=== PATIENT | female | born 1990 | race Caucasian/White ===

== ENCOUNTER 2017-08-06 18:09 | Emergency (ER) | payer OTHER ==
[2017-08-06] MEDS: ONDANSETRON (ODT) 4 MG TAB ODT (20:53)
[2017-08-06] MEDS: FAMOTIDINE 20 MG TAB PO (20:53)
[2017-08-06] MEDS: BELLADONNA/PHENOBARBITAL TAB PO (20:53)
[2017-08-06] MEDS: LIDOCAINE/MYLANTA 40 ML BTL PO (20:53)
[2017-08-06 21:13] LABS: ADD MAN DIFF? NO
[2017-08-06 21:14] LABS: BASOPHIL # 0.1 10^3/ul (0.0-0.1); BASOPHILS % 0.6 % (0.0-2.0); EOSINOPHILS # 0.9 10^3/ul (0.0-0.5); EOSINOPHILS % 6.2 % (0.0-7.0); HEMATOCRIT 40.4 % (37.0-47.0); HEMOGLOBIN 13.2 g/dl (12.0-16.0); LYMPHOCYTES # 3.4 10^3/ul (0.8-2.9); LYMPHOCYTES % 23.3 % (15.0-51.0); MEAN CORPUSCULAR HEMOGLOBIN 26.8 pg (29.0-33.0); MEAN CORPUSCULAR HGB CONC 32.7 g/dl (32.0-37.0); MEAN CORPUSCULAR VOLUME 82.1 fl (82.0-101.0); MEAN PLATELET VOLUME 9.2 fl (7.4-10.4); MONOCYTE # 1.1 10^3/ul (0.3-0.9); MONOCYTES % 7.5 % (0.0-11.0); NEUTROPHILS % 62.1 % (39.0-77.0); PLATELET COUNT 303 10^3/UL (140-415); RED BLOOD COUNT 4.92 10^6/ul (4.20-5.40)
[2017-08-06 21:14] LABS: WHITE BLOOD COUNT 14.5 10^3/ul (4.8-10.8)
[2017-08-06 21:30] LABS: ADD UMIC YES; UR ASCORBIC ACID NEGATIVE (NEGATIVE); UR BACTERIA FEW /HPF (NONE SEEN); UR BILIRUBIN (Dip) NEGATIVE (NEGATIVE); UR BLOOD (Dip) NEGATIVE (NEGATIVE); UR CLARITY SLIGHTLY CLOUDY (CLEAR); UR COLOR YELLOW (YELLOW); UR GLUCOSE (Dip) NEGATIVE (NEGATIVE); UR KETONES (Dip) NEGATIVE (NEGATIVE); UR LEUKOCYTE ESTERASE (Dip) NEGATIVE Leu/ul (NEGATIVE); UR MUCUS MANY /HPF (NONE SEEN); UR NITRITE (Dip) NEGATIVE (NEGATIVE); UR RBC 7 /HPF (0-5); UR SPECIFIC GRAVITY (Dip) 1.027 (1.003-1.030); UR SQUAMOUS EPITHELIAL CELL FEW /HPF (FEW); UR TOTAL PROTEIN (Dip) 1+ mg/dl (NEGATIVE); UR UROBILINOGEN (Dip) 1+ mg/dL (NEGATIVE); UR WBC 8 /HPF (0-5)
[2017-08-06 21:36] LABS: ALANINE AMINOTRANSFERASE 29 IU/L (13-69); ALBUMIN 4.4 g/dl (3.3-4.9); ALBUMIN/GLOBULIN RATIO 1.29; ALKALINE PHOSPHATASE 70 IU/L (42-121); ANION GAP 18 (8-16); ASPARTATE AMINO TRANSFERASE 19 IU/L (15-46); BILIRUBIN,INDIRECT 0.3 mg/dl (0-1.1); BILIRUBIN,TOTAL 0.3 mg/dl (0.2-1.3); BLOOD UREA NITROGEN 8 mg/dl (7-20); CALCIUM 8.8 mg/dl (8.4-10.2); CARBON DIOXIDE 25 mmol/L (21-31); CHLORIDE 101 mmol/L (97-110); CREATININE 0.68 mg/dl (0.44-1.00); GLUCOSE 93 mg/dl (70-220); LIPASE 41 U/L (23-300); SODIUM 140 mmol/L (135-144); TOTAL PROTEIN 7.8 g/dl (6.1-8.1)
== END 2017-08-07 00:07 | disposition home or self-care (01) ==
LOC: FTE 08-07 00:07
DX: K21.9 Gastro-esophageal reflux disease without esophagitis (principal); J45.909 Unspecified asthma, uncomplicated
CPT/HCPCS: 36415; 74176; 76705; 80053; 81001; 83690; 85025; 99285-25

== ENCOUNTER 2017-09-04 11:02 | Emergency (ER) | payer OTHER | END 2017-09-04 13:20 | disposition home or self-care (01) | LOC: E/R 13:20 | DX: J06.9 Acute upper respiratory infection, unspecified (principal); J45.909 Unspecified asthma, uncomplicated | CPT/HCPCS: 99283; Z7502 ==

== ENCOUNTER 2018-07-05 12:59 | Emergency (ER) | payer OTHER | END 2018-07-05 15:50 | disposition home or self-care (01) | LOC: FTE 12:59 | DX: O99.89 Other specified diseases and conditions complicating pregnancy, childbirth and the puerperium (principal); M25.511 Pain in right shoulder; O99.511 Diseases of the respiratory system complicating pregnancy, first trimester; J45.909 Unspecified asthma, uncomplicated; Z3A.13 13 weeks gestation of pregnancy | CPT/HCPCS: 76805; 99284-25 ==

== ENCOUNTER 2018-07-14 21:45 | Emergency (ER) | payer OTHER ==
[2018-07-14] MEDS: SOD CHLORIDE 0.9% 1,000 ML IV (22:02)
[2018-07-14] MEDS: METHYLPREDNISOLONE 125 MG INJ IV (22:02)
[2018-07-14] MEDS: IPRATROPIUM (NEB) 0.5 MG/2.5 ML AMP INH (22:06)
[2018-07-14] MEDS: LEVALBUTEROL (NEB) 1.25 MG/0.5 ML AMP INH (22:06)
== END 2018-07-14 23:20 | disposition home or self-care (01) ==
LOC: E/R 21:45
DX: J45.901 Unspecified asthma with (acute) exacerbation (principal)
CPT/HCPCS: 94644; 96374; 99291-25

== ENCOUNTER 2018-12-14 15:32 | Outpatient (CLI) | payer OTHER | END 2018-12-14 17:30 | disposition home or self-care (01) | LOC: OBT 15:32 → L-D 15:40 → OBT 17:30 | DX: O36.5930 Maternal care for other known or suspected poor fetal growth, third trimester, not applicable or unspecified (principal); Z3A.36 36 weeks gestation of pregnancy | CPT/HCPCS: 76815; 76818 ==

== ENCOUNTER 2018-12-30 15:10 | Inpatient (IN) | payer OTHER ==
[~2018-12-30 15:10] MED LIST: EPHEDrine 25 MG/5 ML SYG; OXYTOCIN 30 UNITS/LR 500 ML BAG IV; PHENYLephrine (100 MCG/ML) 10ML SYG
[2018-12-30] MEDS ORDERED: CARBOPROST 250 MCG INJ IM (15:30)
[2018-12-30] MEDS ORDERED: METHYLERGONOVINE 0.2 MG INJ IM (15:30)
[2018-12-30] MEDS ORDERED: OXYTOCIN 30 UNITS/LR 500 ML IV (15:30)
[2018-12-30] MEDS ORDERED: MISOPROSTOL 200 MCG TAB PR (15:30)
[2018-12-30 16:08] LABS: ADD MAN DIFF? NO
[2018-12-30 16:11] LABS: WHITE BLOOD COUNT 12.7 10^3/ul (4.8-10.8)
[2018-12-30 16:11] LABS: BASOPHIL # 0.1 10^3/ul (0.0-0.1); BASOPHILS % 0.6 % (0.0-2.0); EOSINOPHILS # 0.8 10^3/ul (0.0-0.5); EOSINOPHILS % 6.1 % (0.0-7.0); HEMATOCRIT 36.3 % (37.0-47.0); HEMOGLOBIN 11.7 g/dl (12.0-16.0); LYMPHOCYTES % 15.6 % (15.0-51.0); MEAN CORPUSCULAR HGB CONC 32.2 g/dl (32.0-37.0); MEAN CORPUSCULAR VOLUME 80.7 fl (82.0-101.0); MEAN PLATELET VOLUME 10.4 fl (7.4-10.4); MONOCYTES % 7.8 % (0.0-11.0); NEUTROPHIL # 8.8 10^3/ul (1.6-7.5); NEUTROPHILS % 69.4 % (39.0-77.0); PLATELET COUNT 197 10^3/UL (140-415); RED CELL DISTRIBUTION WIDTH 12.8 % (11.5-14.5)
[2018-12-30] MEDS: LACTATED RINGER'S 1,000 ML IV ×2 (16:17→18:05)
[2018-12-30 16:35] LABS: INR 0.91; PROTIME 12.4 Sec (11.9-14.9)
[2018-12-30 16:36] LABS: PARTIAL THROMBOPLASTIN TIME 25.8 Sec (23.0-35.0)
[2018-12-30 17:03] LABS: HEPATITIS B SURFACE ANTIGEN NEGATIVE (NEGATIVE)
[2018-12-30] MEDS ORDERED: morphine SULFATE/PF (10 MG/10 ML) INJ (18:43)
[2018-12-30] MEDS ORDERED: ALBUTEROL 0.083% (NEB) 2.5 MG/3 ML AMP HHN (19:00)
[2018-12-30] MEDS ORDERED: ONDANSETRON 4 MG INJ IV (19:00)
[2018-12-30] MEDS ORDERED: METOCLOPRAMIDE 10 MG INJ IV (19:00)
[2018-12-30] MEDS ORDERED: NALOXONE (0.4 MG/ML) INJ IV (19:00)
[2018-12-30] MEDS ORDERED: FENTAnyl 50 MCG/ML VIAL IV ×3 (19:00)
[2018-12-30] MEDS ORDERED: DIPHENHYDRAMINE 50 MG INJ IV (19:00)
[2018-12-30] MEDS ORDERED: HYDROmorphONE 1 MG/5 ML IV SYRINGE IV ×2 (19:00)
[2018-12-30] MEDS: CEFAZOLIN 2 GM/50 ML (PMX) 50 ML IVPB (20:57)
[2018-12-30] MEDS: HYDROmorphONE 1 MG/5 ML IV SYRINGE IV (21:14)
[2018-12-30] MEDS: OXYTOCIN 30 UNITS/LR 500 ML IV (21:21)
[2018-12-31] MEDS ORDERED: DIPHENHYDRAMINE 50 MG INJ IV ×2 (01:30)
[2018-12-31] MEDS ORDERED: MISOPROSTOL 200 MCG TAB PR (01:30)
[2018-12-31] MEDS ORDERED: FENTAnyl 50 MCG/ML VIAL IV ×2 (01:30)
[2018-12-31] MEDS ORDERED: ONDANSETRON 4 MG INJ IV ×3 (01:30)
[2018-12-31] MEDS ORDERED: KETOROLAC 30 MG INJ IV (01:30)
[2018-12-31] MEDS ORDERED: CARBOPROST 250 MCG INJ IM (01:30)
[2018-12-31] MEDS ORDERED: METHYLERGONOVINE 0.2 MG INJ IM (01:30)
[2018-12-31] MEDS ORDERED: ZOLPIDEM 5 MG TAB PO (01:30)
[2018-12-31] MEDS ORDERED: NALOXONE (0.4 MG/ML) INJ IV (01:30)
[2018-12-31] MEDS ORDERED: ALBUTEROL 0.083% (NEB) 2.5 MG/3 ML AMP HHN (01:30)
[2018-12-31] MEDS ORDERED: METOCLOPRAMIDE 10 MG INJ IV (01:30)
[2018-12-31] MEDS ORDERED: HYDROmorphONE 0.5 MG/0.5 ML SYG IV ×2 (01:30)
[2018-12-31] MEDS ORDERED: HYDROmorphONE 1 MG/5 ML IV SYRINGE IV ×3 (01:30)
[2018-12-31] MEDS: OXYTOCIN 30 UNITS/LR 500 ML IV (01:43)
[2018-12-31] MEDS: DIPHENHYDRAMINE 50 MG INJ IV (01:44)
[2018-12-31] MEDS: ALBUTEROL HFA 8 GM INHALER INH ×2 (02:42→14:34)
[2018-12-31] MEDS: LACTATED RINGER'S 1,000 ML IV (06:08)
[2018-12-31] MEDS: KETOROLAC 30 MG INJ IV ×2 (06:14→14:26)
[2018-12-31] MEDS: LANOLIN HPA 1 PKT TOP (06:59)
[2018-12-31 08:38] LABS: ADD MAN DIFF? NO
[2018-12-31 08:49] LABS: BASOPHIL # 0.1 10^3/ul (0.0-0.1); BASOPHILS % 0.3 % (0.0-2.0); EOSINOPHILS # 0.5 10^3/ul (0.0-0.5); HEMATOCRIT 31.1 % (37.0-47.0); HEMOGLOBIN 10.2 g/dl (12.0-16.0); LYMPHOCYTES # 1.9 10^3/ul (0.8-2.9); LYMPHOCYTES % 11.3 % (15.0-51.0); MEAN CORPUSCULAR HEMOGLOBIN 26.8 pg (29.0-33.0); MEAN CORPUSCULAR HGB CONC 32.8 g/dl (32.0-37.0); MEAN CORPUSCULAR VOLUME 81.6 fl (82.0-101.0); MEAN PLATELET VOLUME 10.8 fl (7.4-10.4); MONOCYTE # 1.4 10^3/ul (0.3-0.9); MONOCYTES % 8.6 % (0.0-11.0); NEUTROPHIL # 12.8 10^3/ul (1.6-7.5); NEUTROPHILS % 76.4 % (39.0-77.0); PLATELET COUNT 161 10^3/UL (140-415); RED BLOOD COUNT 3.81 10^6/ul (4.20-5.40); RED CELL DISTRIBUTION WIDTH 12.8 % (11.5-14.5)
[2018-12-31 08:49] LABS: WHITE BLOOD COUNT 16.7 10^3/ul (4.8-10.8)
[2018-12-31] MEDS: SENNA/DOCUSATE NA (8.6MG/50MG) TAB PO ×2 (11:25→21:26)
[2018-12-31 16:55] LABS: RAPID PLASMA REAGIN NONREACTIVE (NR)
[2018-12-31] MEDS: IBUPROFEN 600 MG TAB PO ×2 (18:00→23:43)
[2018-12-31] MEDS ORDERED: OXYCODONE/ACETAMINOPHEN (5/325) TAB PO (19:00)
[2018-12-31] MEDS: OXYCODONE/ACETAMINOPHEN (5/325) TAB PO (21:26)
[2019-01-01] MEDS: IBUPROFEN 600 MG TAB PO ×4 (05:41→23:40)
[2019-01-01] MEDS: ALBUTEROL HFA 8 GM INHALER INH ×3 (05:46→21:31)
[2019-01-01 08:42] LABS: ADD MAN DIFF? NO
[2019-01-01 08:54] LABS: WHITE BLOOD COUNT 15.1 10^3/ul (4.8-10.8)
[2019-01-01 08:54] LABS: BASOPHILS % 0.3 % (0.0-2.0); EOSINOPHILS # 0.9 10^3/ul (0.0-0.5); EOSINOPHILS % 5.9 % (0.0-7.0); HEMATOCRIT 27.2 % (37.0-47.0); HEMOGLOBIN 8.8 g/dl (12.0-16.0); LYMPHOCYTES # 2.1 10^3/ul (0.8-2.9); LYMPHOCYTES % 13.8 % (15.0-51.0); MEAN CORPUSCULAR HEMOGLOBIN 26.2 pg (29.0-33.0); MEAN CORPUSCULAR HGB CONC 32.4 g/dl (32.0-37.0); MEAN PLATELET VOLUME 10.5 fl (7.4-10.4); MONOCYTE # 1.3 10^3/ul (0.3-0.9); MONOCYTES % 8.4 % (0.0-11.0); NEUTROPHIL # 10.7 10^3/ul (1.6-7.5); NEUTROPHILS % 71.1 % (39.0-77.0); PLATELET COUNT 156 10^3/UL (140-415); RED BLOOD COUNT 3.36 10^6/ul (4.20-5.40); RED CELL DISTRIBUTION WIDTH 13.2 % (11.5-14.5)
[2019-01-01] MEDS: SENNA/DOCUSATE NA (8.6MG/50MG) TAB PO ×2 (09:32→21:30)
[2019-01-02] MEDS: IBUPROFEN 600 MG TAB PO ×2 (05:53→12:00)
[2019-01-02] MEDS: SENNA/DOCUSATE NA (8.6MG/50MG) TAB PO (08:26)
[2019-01-02] MEDS: ALBUTEROL HFA 8 GM INHALER INH (08:26)
[2019-01-02] MEDS: DIPHTH/TET/ACEL PERTUSS (ADULT) 0.5 ML VIAL IM* (10:27)
[2019-01-02] MEDS: MEASLES,MUMPS,RUBELLA VACCINE INJ SC* (10:30)
== END 2019-01-02 11:50 | disposition home or self-care (01) | DRG 788 ==
LOC: L-D 15:10 → PP1 23:27
PROVIDERS: Obstetrics & Gynecology
PROC: 10D00Z1 Extraction of Products of Conception, Low, Open Approach (ICD-10-PCS; principal; 2018-12-30 17:00)
DX: O34.211 Maternal care for low transverse scar from previous cesarean delivery (principal); Z3A.39 39 weeks gestation of pregnancy; Z37.0 Single live birth
CPT/HCPCS: 85025; 85610; 85730; 86592; 86850; 86900; 86901; 87340; 90715; 99464